=== PATIENT | female | born 1990 | race African-American/Black ===

== ENCOUNTER 2021-10-05 14:23 | Emergency (ER) | payer MEDICAID ==
[~2021-10-05] VITALS: Ht 172.7 cm; Wt 75.0 kg
[2021-10-05 14:49] VITALS: BP 101/73
[2021-10-05] MEDS ORDERED: TRAZ-251 PO (14:57)
[2021-10-05] MEDS ORDERED: ESCI5TAB PO (14:57)
[2021-10-05] MEDS ORDERED: birth control (14:57)
[2021-10-05] MEDS ORDERED: insulin (14:57)
[2021-10-05 18:11] LABS: CHLORIDE 103 mEq/L (98-107)
[2021-10-05 18:16] LABS: HCG SCREEN NEGATIVE
[2021-10-05 18:17] LABS: BASOPHILS % 0.5 % (0.0-2.0); EOSINOPHILS % 1.2 % (0.0-5.0); HEMATOCRIT. 44.6 % (36.0-48.0); HEMOGLOBIN. 14.6 g/dL (12.0-16.0); MEAN CORPUSCULAR HEMOGLOBIN 29.7 pg (28.0-32.0); MEAN CORPUSCULAR VOLUME 91.1 fL (81.0-99.0); MONOCYTES % 9.6 % (2.0-8.0); NEUTROPHILS % 69.7 % (40.0-76.0); PLATELET 229 x1000/uL (130-400)
[2021-10-05] MEDS ORDERED: MAGNESIUM/ALUMINUM HYDROXIDE/SIMETHICONE 30ML UDC PO STA (21:55)
[2021-10-05] MEDS ORDERED: DICYCLOMINE 10 MG/5 ML ORAL SYR PO STA (21:55)
[2021-10-05] MEDS ORDERED: FAMOTIDINE 20MG TABLET PO ONE (22:00)
[2021-10-05] MEDS ORDERED: FAMO-135 MT (22:15)
[2021-10-05] MEDS ORDERED: DICY20TA2 MT (22:15)
[2021-10-05 22:44] LABS: CLARITY URINE CLEAR (CLEAR); COLOR URINE YELLOW (YELLOW); KETONES URINE 2+ (NEGATIVE); LEUKOCYTE ESTERASE URINE TRACE (NEGATIVE); NITRITE URINE NEGATIVE (NEGATIVE); OCCULT BLOOD URINE TRACE (NEGATIVE); PH URINE 6.5 (4.5-8.0); PROTEIN URINE NEGATIVE (NEGATIVE); SPECIFIC GRAVITY URINE 1.021 (1.005-1.030)
== END 2021-10-05 22:42 | disposition home or self-care (01) ==
LOC: ER 14:23
DX: R10.13 Epigastric pain (principal); E11.9 Type 2 diabetes mellitus without complications
CPT/HCPCS: 36415; 76705; 80053; 81003; 82962; 84703; 85025; 99284